=== PATIENT | female | born 1955 | race Caucasian/White ===

== ENCOUNTER 2019-07-03 09:31 | Day surgery (SDC) | payer BC ==
[2019-07-03] MEDS: Lactated Ringers 1,000 ML IV SCH (10:15)
[2019-07-03] MEDS: Sodium Chloride 0.9% 10 ML Syringe FLUSH PRN (10:15)
[2019-07-03] MEDS ORDERED: Midazolam 1 MG/ML 2 ML SDV ONE (10:34)
[2019-07-03] MEDS ORDERED: Propofol 200 MG/20 ML SDV ONE (10:34)
--- NOTE | 2019-07-03 11:08 | PCM.PN ---
- General Info Date of Service: 07/03/19 - Review of Systems Systems Review Comment:: 63-year-old female referred for her initial colonoscopy. She was noted to have a positive fit test. She denies any recent change in bowel pattern. She does note that her father had colon polyps. I discussed the proposed colonoscopy with the patient. Risks such as but not limited to bleeding and GI injury reviewed. She agrees to proceed. Her recent history and physical is reviewed and no significant changes are noted. - Patient Data Vitals - Most Recent: Last Vital Signs Temp 97.8 F 07/03/19 09:50 Pulse 82 07/03/19 09:50 Resp 16 07/03/19 09:50 BP 150/74 H 07/03/19 09:50 Pulse Ox 98 07/03/19 09:50 Weight - Most Recent: 65.771 kg Med Orders - Current: Current Medications Lactated Ringer's (Ringers, Lactated) 1,000 mls @ 50 mls/hr IV ASDIRECTED HERMAN Last Admin: 07/03/19 10:15 Dose: 50 mls/hr Sodium Chloride (Saline Flush) 10 ml FLUSH Q8HR PRN PRN Reason: keep vein open Last Admin: 07/03/19 10:15 Dose: 10 ml Discontinued Medications Midazolam HCl (Versed 1 Mg/Ml) Confirm Administered Dose 2 mg .ROUTE .STK-MED ONE Stop: 07/03/19 10:35 Propofol (Diprivan 20 Ml) Confirm Administered Dose 400 mg .ROUTE .STK-MED ONE Stop: 07/03/19 10:35 - Problem List Review Problem List Initiated/Reviewed/Updated: Yes - My Orders Last 24 Hours: My Active Orders 07/02/19 15:09 Resuscitation Status Routine 07/03/19 09:30 Vital Signs [RC] PER UNIT ROUTINE Lactated Ringers [Ringers, Lactated] 1,000 ml IV ASDIRECTED Sodium Chloride 0.9% [Saline Flush] 10 ml FLUSH Q8HR PRN Peripheral IV Insertion Adult [OM.PC] Routine 07/03/19 10:00 Patient to Empty Bladder [RC] ASDIRECTED 07/03/19 10:45 Verify Patient Consent Obtain [RC] ASDIRECTED 07/03/19 Breakfast Nothing Per Oral Diet [DIET] - Assessment Assessment:: Positive fit test - Plan Plan:: Colonoscopy
--- NOTE | 2019-07-03 11:39 | PCM.OPNOTE ---
- General Post-Op/Procedure Note Date of Surgery/Procedure: 07/03/19 Operative Procedure(s): Colonoscopy Findings: Moderate Sigmoid Diverticulosis Pre Op Diagnosis: Postive Fit Post-Op Diagnosis: Sigmoid Diverticulosis Anesthesia Technique: MAC Primary Surgeon: Danilo Mendez Pathology: none EBL in mLs: 0 Complications: None Condition: Good
--- NOTE | 2019-07-03 12:52 | OR ---
DATE OF SURGERY: 07/03/2019 SURGEON: Danilo Mendez MD REFERRING PROVIDER: Jessy Murrell. PREOPERATIVE DIAGNOSIS: Positive fit test. POSTOPERATIVE DIAGNOSIS: Sigmoid diverticulosis. OPERATION PERFORMED: Colonoscopy. INDICATIONS FOR SURGERY: This 63-year-old female who has never had previous colon examination was noted recently to have a positive fit test and comes for colonoscopy. FINDINGS: The patient has moderate diverticulosis of the sigmoid colon. This caused some tortuosity, but the diverticula do not appear to be acutely inflamed or otherwise complicated. The remainder of the colon appears normal. DESCRIPTION OF PROCEDURE: The patient was taken to the operating room. She was given intravenous sedation and with her in the left lateral decubitus position, digital rectal exam was performed showing no rectal masses. The Olympus colonoscope was inserted into the rectum. Retroflexed examination of the rectal canal was performed. The scope was then carefully advanced under direct visualization through the entire length of the colon until the cecum was reached. Cecal acquisition was confirmed by noting the normal internal cecal anatomy including the appendiceal orifice and ileocecal valve. The light was also noted to transilluminate the abdominal wall in the right lower quadrant. After examining the cecum, the scope was slowly withdrawn sequentially re- examining the colonic segments until the entire colon and rectum had been fully examined. The scope was removed and the patient was taken from the operating room in satisfactory condition. ESTIMATED BLOOD LOSS: Zero. COMPLICATIONS: None. PROGNOSIS: Good. /[id number]/MODL
== END 2019-07-03 13:20 | disposition home or self-care (01) ==
LOC: KA.SDS 09:31
PROVIDERS: ATTEND Surgery
DX: K57.31 Diverticulosis of large intestine without perforation or abscess with bleeding (principal); L40.8 Other psoriasis; Z88.0 Allergy status to penicillin; Z87.891 Personal history of nicotine dependence; Z83.71 Family history of colonic polyps; Z79.899 Other long term (current) drug therapy
CPT/HCPCS: J2250; J2704; J7120